=== PATIENT | female | born 1955 | race Caucasian/White ===

== ENCOUNTER 2017-10-20 10:51 | Observation (INO) | payer MEDICARE ==
[~2017-10-20] VITALS: Ht 172.7 cm; Wt 74.9 kg
[~2017-10-20 10:51] MED LIST: CLON.5 PO; EZET10 PO; FLUT1INH INH; FLUT1SPR5 EACH NARE; LEVOTAB PO; MONT10TA2 PO; WELLTAB39 PO; ZANT150T2 PO
[2017-10-20] MEDS ORDERED: PERC5TAB12 PO (11:38)
[2017-10-20] MEDS ORDERED: KETOROLAC TROMETHAMINE 30 MG/ML (IVP) VIAL IV PUSH ONE (12:00)
[2017-10-20] MEDS ORDERED: PROPOFOL 200 MG/20 ML AMP IV ONE (12:00)
[2017-10-20] MEDS ORDERED: GLYCOPYRROLATE 1 MG/5 ML SYRINGE IV PUSH ONE (12:00)
[2017-10-20] MEDS ORDERED: ceFAZolin 2 GM/NS PREMIX 100 ML IV SCH (12:00)
[2017-10-20] MEDS ORDERED: DEXAMETHASONE SOD PHOS 4 MG/ML VIAL IV ONE (12:00)
[2017-10-20] MEDS ORDERED: CHLORHEXIDINE GLUCONATE 2 % 1 PACK (2 CLOTHS) TOPICAL PRN (12:00)
[2017-10-20] MEDS ORDERED: LACTATED RINGER'S 1000 ML IV PRN (12:00)
[2017-10-20] MEDS ORDERED: ONDANSETRON HCL 4 MG/2 ML VIAL IV ONE (12:00)
[2017-10-20] MEDS ORDERED: SODIUM CHLORID 0.9% 500 ML IV PRN (12:00)
[2017-10-20] MEDS ORDERED: ROCURONIUM INJ 50 MG/5 ML SYRINGE IV PUSH ONE (12:00)
[2017-10-20] MEDS ORDERED: POVIDONE IODINE 5% (ANTISEPSIS KIT) 4 APPLICATIONS EACH NARE PRN (12:00)
[2017-10-20] MEDS ORDERED: METOPROLOL TARTRATE 25 MG TAB PO PRN (12:00)
[2017-10-20] MEDS ORDERED: LIDOCAINE HCL 1% PF 5 ML SYRINGE OTHER ONE (12:00)
[2017-10-20] MEDS ORDERED: NEOSTIGMINE 5 MG/5 ML SYRINGE IV PUSH ONE (12:00)
[2017-10-20] MEDS ORDERED: BUPIVACAINE/EPINEPHRINE 0.5% PF 10 ML VIAL ONE (12:06)
--- NOTE | 2017-10-20 12:22 | RADRPT ---
EXAM DATE: 10/20/2017 12:08 PM EDT AGE/SEX: 62 years / Female INDICATIONS: Evaluate for pneumonia, pneumothorax or communicable disease. Preop chest for repair of a spigelian hernia today, no chest complaints CLINICAL DATA: This is the patient's initial encounter. Patient reports that signs and symptoms have been present for 1 day and indicates a pain score of 0/10. MEDICAL/SURGICAL HISTORY: None. None. COMPARISON: No prior exams available for comparison. FINDINGS: A single AP view of the chest demonstrates the lungs to be symmetrically aerated without evidence of mass, infiltrate or effusion. The cardiomediastinal contours are unremarkable. Osseous structures a re intact. CONCLUSION: No acute cardiopulmonary disease. Electronically signed by: Todd Valle MD 10/20/2017 12:20 PM EDT
[2017-10-20 12:35] LABS: AUTOMATED NEUTROPHIL # 3.1 TH/MM3 (1.8-7.7); BASOPHIL % 0.5 % (0.0-2.0); EOSINOPHIL # 0.1 TH/MM3 (0-0.4); EOSINOPHIL % 1.1 % (0.0-4.0); HEMATOCRIT 41.7 % (35.0-46.0); HEMOGLOBIN 14.1 GM/DL (11.6-15.3); LYMPH % 30.9 % (9.0-44.0); LYMPHOCYTE # 1.7 TH/MM3 (1.0-4.8); MEAN CELL VOLUME 91.9 FL (80.0-100.0); MEAN CORPUSCULAR HGB CONC 33.7 % (32.0-36.0); MEAN PLATELET VOLUME 9.2 FL (7.0-11.0); MONO % 9.4 % (0.0-8.0); MONOCYTE # 0.5 TH/MM3 (0-0.9); NEUT % 58.1 % (16.0-70.0); PLATELET COUNT 197 TH/MM3 (150-450); RED BLOOD COUNT 4.54 MIL/MM3 (4.00-5.30); RED CELL DISTRIBUTION WIDTH 13.4 % (11.6-17.2); WHITE BLOOD COUNT 5.4 TH/MM3 (4.0-11.0)
[2017-10-20 13:01] LABS: CREATININE 0.75 MG/DL (0.50-1.00)
[2017-10-20] MEDS ORDERED: ceFAZolin 2 GM PREMIX 50 ML ONE (13:13)
[2017-10-20] MEDS ORDERED: BUPIVACAINE LIPOSOME PF 1.3% 20 ML VIAL ONE (15:10)
[2017-10-20] MEDS ORDERED: ONDANSETRON HCL 4 MG/2 ML VIAL IV PUSH ONE (16:15)
[2017-10-20] MEDS ORDERED: oxyCODONE/ACETAMINOPHEN 5 MG/325 MG TAB PO PRN (16:15)
--- NOTE | 2017-10-20 16:16 | HHI.PR ---
Immediate Post Op Note Procedure Date: Oct 20, 2017 Pre Op Diagnosis: incisional hernia Post Op Diagnosis: same, adhesions Surgeon: Bob Mcdermott MD Formula Mixer(s): see or sheet Procedure: robotic asst incisional hernia repair, lysis of adhesions Findings: multiple intraabdominal adhesion, LLQ hernia defect Complications: none Specimen(s) removed: none Estimated blood loss: 5cc Anesthesia: General Drains: None Patient to: PACU Patient Condition: Good Bob Mcdermott MD Oct 20, 2017 16:16
[2017-10-20] MEDS ORDERED: MIDAZOLAM HCL 2 MG/2 ML VIAL ONE (16:29)
[2017-10-20] MEDS ORDERED: *morphine SULFATE 10 MG/ML PERIprocedure ONLY ONE (16:35)
--- NOTE | 2017-10-20 16:50 | EKG ---
Date Performed: 10/20/2017 Time Performed: 11:43:02 PTAGE: 62 years EKG: SINUS BRADYCARDIA BORDERLINE ECG NO PREVIOUS TRACING DOCTOR: Patrice Damian Interpretating Date/Time 10/20/2017 16:46:01
[2017-10-20] MEDS ORDERED: DO NOT ADM ANY ANTICOAGULANT DRUGS PRN (17:30)
[2017-10-20] MEDS ORDERED: HYDROmorphone HCL PF 2 MG/ML VIAL ONE ×2 (17:32→18:06)
[2017-10-20] MEDS ORDERED: KETOROLAC TROMETHAMINE 30 MG/ML (IVP) VIAL IVP PRN (19:45)
[2017-10-20] MEDS ORDERED: Post-op Orders (for Pharmacy) XX ONE (19:45)
[2017-10-20] MEDS ORDERED: ONDANSETRON ODT 4 MG TAB PO PRN (19:45)
[2017-10-20] MEDS ORDERED: ACETAMINOPHEN/HYDROcodone 325 MG/5 MG TAB PO PRN (19:45)
[2017-10-20] MEDS ORDERED: SODIUM CHLORIDE 0.9% FLUSH 10 ML FLUSH IV FLUSH PRN (19:45)
[2017-10-20 20:00] VITALS: BP 146/62; PULSE 81; RESP 17; TEMP 97.9; O2SAT 97
[2017-10-20] MEDS: ACETAMINOPHEN/HYDROcodone 325 MG/5 MG TAB PO PRN (21:56)
[2017-10-20] MEDS: DOCUSATE SODIUM 100 MG CAP PO SCH (21:57)
[2017-10-20] MEDS: SODIUM CHLORIDE 0.9% FLUSH 10 ML FLUSH IV FLUSH SCH (21:57)
[2017-10-20] MEDS: SODIUM CHLOR 0.9% 1000 ML INJ 1,000 ML IV SCH (22:14)
--- NOTE | 2017-10-20 22:19 | MP ---
cc: Bob Mcdermott MD, lars A DATE OF OPERATION: 10/20/2017 DATE OF PROCEDURE: 10/20/2017. PREOPERATIVE DIAGNOSIS: Ventral hernia, incisional left lower quadrant. POSTOPERATIVE DIAGNOSIS: Ventral hernia, incisional left lower quadrant. PROCEDURES PERFORMED: 1. Robotic-assisted laparoscopic repair of incisional hernia. 2. Lysis of adhesions. SURGEON: Bob Mcdermott MD [employer]UT[employer]NT: Rachna ANESTHESIA: GETA. IV FLUIDS: See anesthesia sheet. ESTIMATED BLOOD LOSS: 5 mL DRAINS: None COMPLICATIONS: None. WOUND CLASSIFICATION: Clean. SPECIMENS: None. FINDINGS: Multiple intra-abdominal adhesions. Small left lower quadrant hernia defect. INDICATIONS: This is a 61-year-old female who presented with acute onset of left lower quadrant abdominal pain. She states the pain was severe, significant and had been somewhat gradual. She had further workup including a rule out renal stone causes and a CT scan showing anterior abdominal left lower quadrant hernia, appearance of spigelian hernia versus incisional hernia. DETAILS OF PROCEDURE: The patient was taken to the operating suite, placed in supine position. She was prepped and draped in usual sterile fashion after induction of general endotracheal anesthesia. Brief timeout done stating correct patient, procedure, surgical site, and all were in agreement with this. Attention first directed to the right upper quadrant, where a small stab destiny incision was made with an 11 blade. Local anesthetic injected. The Optiview Visiport was used to enter the abdomen safely. Abdomen insufflated to 15 mm pneumoperitoneum. Two other ports placed, one 8 mm epigastric port, followed by a right lower quadrant 8 mm port. There was noted to be anterior abdominal adhesions that were pretty significant throughout the scattered anterior abdominal wall. Omental adhesions were taken down along with adhesions to the small bowel as well. This was done first laparoscopically in order to facilitate port placement and then, following this, the robot arms were docked and I broke scrub and sat at the console and continued with lysis of adhesions to the anterior abdominal wall. After dissecting down into the left lower quadrant, there was noted again to be significant adhesions which were indeed mobilized. The appearance of a left lower quadrant hernia was identified, noted to be about 2.5 x 3 cm defect. The adhesions were taken down from this with monopolar scissors and electro Bovie cautery. Once the peritoneal area was completely clean of any abdominal adhesions, the left lower quadrant hernia defect was closed primarily with a #1 nonabsorbable V-Loc x2 in a running fashion. Following this, the 12 x 12 circular mesh was obtained and cut down to size of 8 x 11. Two 6-inch 2-0 V-Loc sutures were placed at either ends and the camera removed and the mesh placed into the abdomen. The rough side was placed against the hernia defect that had been repaired and on the anterior abdominal wall, a smooth surface was noted against the omentum and bowel. The mesh was sutured in using the two 2.0 V-locks. A third 12 mm V-Lock suture was placed in order to complete circumferentially sewing the mesh to the abdominal wall. After we were content with this, the abdomen was inspected and electro Bovie cautery used for bleeding points. The abdomen otherwise looked clean. Next, the robot was undocked and we proceed laparoscopically to remove all needles and sutures. All counts were correct. The suture passer was used with 0 Vicryl to close the 12 mm port. Exparel was injected around the hernia sac that had been repaired and around the mesh defect and at port sites. Port sites were closed with 4-0 Monocryl and sterile dressings and Mastisol were placed. All lap and instrument counts were correct at the end of procedure. The patient tolerated the procedure well with no intraoperative complications. The patient was extubated and taken stable to PACU. MD ANNIE Johnson/ , 09:40 PM , 10:17 PM
[2017-10-21] VITALS: BP 129/58; PULSE 85; RESP 17; TEMP 97.9; O2SAT 100
[2017-10-21] MEDS: HYDROmorphone HCL PF 2 MG/ML VIAL IV PUSH PRN ×3 (00:14→08:26)
[2017-10-21] MEDS: metroNIDAZOLE 500 MG INJ 100 ML IV SCH ×2 (00:20→07:00)
[2017-10-21] MEDS ORDERED: clonazePAM 0.5 MG TAB PO PRN (01:15)
[2017-10-21] MEDS: ACETAMINOPHEN/HYDROcodone 325 MG/5 MG TAB PO PRN ×2 (02:13→06:22)
[2017-10-21 04:00] VITALS: BP 125/59; PULSE 80; RESP 17; TEMP 98.3; O2SAT 100
[2017-10-21] MEDS: SODIUM CHLOR 0.9% 1000 ML INJ 1,000 ML IV SCH (05:45)
[2017-10-21] MEDS ORDERED: diphenhydrAMINE HCL ELIXIR 12.5 MG/5 ML CUP PO ONE (06:15)
[2017-10-21 07:08] LABS: AUTOMATED NEUTROPHIL # 5.9 TH/MM3 (1.8-7.7); BASOPHIL % 0.2 % (0.0-2.0); EOSINOPHIL % 0.1 % (0.0-4.0); HEMATOCRIT 36.4 % (35.0-46.0); LYMPH % 17.5 % (9.0-44.0); LYMPHOCYTE # 1.4 TH/MM3 (1.0-4.8); MEAN CELL VOLUME 93.1 FL (80.0-100.0); MEAN CORPUSCULAR HEMOGLOBIN 30.8 PG (27.0-34.0); MEAN CORPUSCULAR HGB CONC 33.1 % (32.0-36.0); MEAN PLATELET VOLUME 9.2 FL (7.0-11.0); MONO % 10.6 % (0.0-8.0); MONOCYTE # 0.9 TH/MM3 (0-0.9); NEUT % 71.6 % (16.0-70.0); PLATELET COUNT 185 TH/MM3 (150-450); RED BLOOD COUNT 3.91 MIL/MM3 (4.00-5.30); RED CELL DISTRIBUTION WIDTH 13.5 % (11.6-17.2); WHITE BLOOD COUNT 8.3 TH/MM3 (4.0-11.0)
[2017-10-21 07:47] LABS: BICARBONATE 25.9 MEQ/L (21.0-32.0); CALCIUM 8.3 MG/DL (8.5-10.1); CREATININE 0.67 MG/DL (0.50-1.00)
[2017-10-21 08:00] VITALS: BP 122/58; PULSE 73; RESP 18; TEMP 98; O2SAT 95
[2017-10-21] MEDS: DOCUSATE SODIUM 100 MG CAP PO SCH (08:24)
[2017-10-21] MEDS: SODIUM CHLORIDE 0.9% FLUSH 10 ML FLUSH IV FLUSH SCH (08:26)
--- NOTE | 2017-10-21 09:20 | HHI.DS ---
Discharge Summary Admission Date Oct 20, 2017 at 19:47 Discharge Date: Oct 21, 2017 Admitting Diagnosis Brief History 62 year old female POD1 robotic asst incisional hernia repair, lysis of adhesions CBC/BMP: 10/21/17 0602 10/21/17 0602 Significant Findings Laboratory Tests Test 10/20/17 11:55 10/21/17 06:02 Monocytes (%) (Auto) 9.4 % (0.0-8.0) 10.6 % (0.0-8.0) Chloride Level 109 MEQ/L (98-107) 109 MEQ/L (98-107) Estimat Glomerular Filtration Rate 78 ML/MIN (>89) Red Blood Count 3.91 MIL/MM3 (4.00-5.30) Neutrophils (%) (Auto) 71.6 % (16.0-70.0) Calcium Level 8.3 MG/DL (8.5-10.1) PE at Discharge Alert and awake Cardio: RRR Resp: CTAB Abd: lap sites c/d/i; binder in place Hospital Course This is a 62 year old female s/p robotic asst incisional hernia repair and lysis of adhesions. The patient was able to tolerate a regular diet. The patient's pain control using oral pain medications. The patient will follow up in the office on October 30. Pt Condition on Discharge: Good Discharge Disposition: Discharge Home Discharge Instructions DIET: Follow Instructions for: As Tolerated, No Restrictions Activities you can perform: See Additionl Instruction Other Activity Instructions: no heavy lifting >15 lbs for 3-4 weeks, ok to shower in 24 hours, no bath tub; wear abdominal binder Yoly Fisher/First Beryl IVERSON Oct 21, 2017 09:20
== END 2017-10-21 11:41 | disposition home or self-care (01) ==
LOC: HSDC 10:51 → N07B 19:43 → HSDC 19:47 → N07B 19:47
PROVIDERS: ADMIT Surgery; ATTEND Surgery
DX: K43.2 Incisional hernia without obstruction or gangrene (principal); K66.0 Peritoneal adhesions (postprocedural) (postinfection); R00.1 Bradycardia, unspecified; E66.3 Overweight
CPT/HCPCS: 00832; 49654; 71045; 80048; 85025; 93005; 96365; 96366; 96368; 96375; 96376; C1781; C9290; G0378; J0690; J1100; J1170; J1885; J2250; J2270; J2405; J2710; J3010; J7030; S2900